=== PATIENT | female | born 1965 | race Caucasian/White ===

== ENCOUNTER 2019-03-02 10:02 | Day surgery (SDC) | payer OTHER, SELFPAY ==
--- NOTE | 2019-02-24 12:02 | HP.PCM_ITS ---
History and Physical Date of Admission: 03/02/19 Lisa Stinson Physician [employer] H&P Signed Encounter Date: 02/24/2019 Expand All Collapse All Hide copied text Hover for details Astrid Thomas is a 53 year old female who presents for AUB, endometrial polyps. Pt is scheduled for Hysteroscopy, D&C, Polypectomy and Mirena insertion on 03/02/19 at [facility]. Pt reports no bleeding at current time. Pt denies CP, SOB, dizzness. ? PAST?MEDICAL?HISTORY PAST MEDICAL HISTORY Diagnosis Date ? Anemia ? ? Anxiety ? ? Depression 04/13/2017 ? IRINEO (generalized anxiety disorder) 04/13/2017 ? Gall stone 06/05/2016 ? History of Graves' disease 03/30/2017 ? Irregular menses 04/13/2017 ? Migraines ? ? Mixed hyperlipidemia 04/13/2017 ? Ocular migraine 04/13/2017 ? Panic disorder 04/13/2017 ? Perimenopause 04/13/2017 ? Postablative hypothyroidism 04/13/2017 ? Psoriasis ? ? of ear ? Psychophysiological insomnia 04/13/2017 ? Vitamin D deficiency 04/13/2017 ? PAST?SURGICAL?HISTORY PAST SURGICAL HISTORY Procedure Laterality Date ? CHG DELIVERY ? 1990 ? CHOLECYSTECTOMY ? 06/09/2016 ? ? COLONOSCOPY ? 01/18/2017 ? repeat in 10 yrs ? ERCP ? 2017 ? under [facility] ? FAMILY?HISTORY FAMILY HISTORY Problem Relation Age of Onset ? Cancer Mother ? ? uterine ? Psychiatry Mother ? ? anxiety ? Cancer Father ? ? neuroendocrine ? Hypertension Father ? ? Thyroid Sister ? ? Diabetes Paternal Uncle ? ? Coronary Artery Disease Paternal Uncle ? ? SOCIAL?HISTORY Social History ? Tobacco Use ? Smoking status: Never Smoker ? Smokeless tobacco: Never Used Substance Use Topics ? Alcohol use: No ? Drug use: No ? CURRENT?MEDICATIONS ? Current Outpatient Medications: Cholecalciferol, Vitamin D3, 2,000 unit cap Take 2 capsules by mouth once daily. clotrimazole-betamethasone (LOTRISONE) cream Apply 1 application to affected area twice daily. iron polysaccharide complex (POLY-IRON) 150 mg iron capsule Take 1 capsule by mouth twice daily. levothyroxine (LEVOXYL) 88 mcg tablet Take 1 tablet by mouth once daily. Take on empty stomach. For Thyroid cloNIDine HCl (CATAPRES) 0.1 mg tablet Take 1 tablet by mouth twice daily. lisinopril (ZESTRIL, PRINIVIL) 5 mg tablet Take 1 tablet by mouth once daily. COMPOUNDED PRESCRIPTION Treadmill for home use to help with weight loss COMPOUNDED PRESCRIPTION BP cuff and machine. Dx of HTN sertraline (ZOLOFT) 50 mg tablet ? fluocinolone (SYNALAR) 0.01 % external solution Apply to affected area twice daily. ? No current facility-administered medications for this visit. Allergies As of Date: 02/24/2019 (No Known Allergies) Fully Assessed 02/24/2019 ? ? REVIEW OF SYSTEMS Abdomen: no pain Bladder: no dysuria.. Expanded ROS: GENERAL: Negative for fever Allergies and current medication updated:Yes ? EXAM: BP 130/82 Ht 5' 3 (1.60m) Wt 153 lb (69.4kg) BMI 27.11 kg/(m^2). ? GENERAL: pleasant, female in no apparent distress HEENT: Normocephalic, atraumatic, mucus membranes moist and no lesions NECK: full range of motion DERMATOLOGY: Normal, without lesions, non-icteric and non-hirsute CARDIAC: regular rate and rhythm CHEST: Clear to auscultation Normal inspiratory effort NEURO: alert and oriented x3,exam grossly non-focal EXTREMITIES: normal ? ASSESSMENT AND PLAN: Encounter Diagnosis ? ? ICD-10-CM ? 1. Abnormal uterine bleeding (AUB) N93.9 ? 2. Endometrial polyp N84.0 ? ? 3. Pt has been counseled on risks/benefits and alternatives of surgery including but not limited to anesthesia, bleeding, infection, perforation of uterus with subsequent injury to pelvic structures including bowel, bladder, and vessels. Pt wishes to proceed with surgery at this time. 4. Consent signed. ? ? Lisa Sanders MD
--- NOTE | 2019-03-02 | EMB_PTH ---
PATIENT: SULEMAN SIERRA LOC: [facility] U#:[id number] AGE/SX: 53/F ROOM: RE03/02/[address]: Dr. Lisa Sanders, MDDOB: 1965 BED: DIS: 03/02/2019 SPEC #: [id number] RECD: 03/02/19 13:16 STATUS: ADALID KIARRA #: [id number] BESSIE: 03/02/19 00:[address]: Lisa Sanders DEPT: SURGICAL PATHOLOGY RECD BY: Stanley Bedoya ENTERED: 03/02/19 13:16 SP TYPE: ENDOM BX/C KELLIEHR DR: Dr. Vaughn Connell MD Tissues: Endometrium, NOS Procedures: Surgery Specimen Level IV HEADER OPERATION: Hysteroscopy, D & C, polypectomy PRE-OP DIAGNOSIS: Abnormal uterine bleeding, endometrial polyp TISSUE SUBMITTED: Endometrial curettings and polyp MICROSCOPIC DIAGNOSIS Endometrium and polyp, excision: Polypoid fragments of proliferative endometrium. Rare strips of benign superficial endocervix. AM:shanti 03/03/19 COMMENT Case has been reviewed in consultation with Dr. Pedroza who concurs with the above diagnosis. IDC:STEFANO MICROSCOPIC DESCRIPTION Slides are reviewed. GROSS DESCRIPTION Received in fixative is one container labeled with the patient's name and designated endometrial curettings and polyp. The specimen consists of multiple irregular fragments of gilman-pink to hemorrhagic soft tissue that in aggregate measure 3 x 2.5 x 0.3 cm. The entire specimen is submitted in one cassette. / SJ:shanti 03/02/19 TC:5 CPT: 06141
--- NOTE | 2019-03-02 | EMB_PTH ---
PATIENT: SULEMAN SIERRA LOC: [facility] U#:[id number] AGE/SX: 53/F ROOM: RE03/02/[address]: Dr. Lisa Sanders, MDDOB: 1965 BED: DIS: 03/02/2019 SPEC #: [id number] RECD: 03/02/19 13:16 STATUS: ADALID KIARRA #: [id number] BESSIE: 03/02/19 00:[address]: Lisa Sanders DEPT: SURGICAL PATHOLOGY RECD BY: Stanley Bedoya ENTERED: 03/02/19 13:16 SP TYPE: ENDOM BX/C KELLIEHR DR: Dr. Vaughn Connell MD Tissues: Endometrium, NOS Procedures: Surgery Specimen Level IV HEADER OPERATION: Hysteroscopy, D & C, polypectomy PRE-OP DIAGNOSIS: Abnormal uterine bleeding, endometrial polyp TISSUE SUBMITTED: Endometrial curettings and polyp MICROSCOPIC DIAGNOSIS Endometrium and polyp, excision: Polypoid fragments of mildly disordered proliferative endometrium. Rare strips of benign superficial endocervix. AM:shanti 03/03/19 COMMENT Case has been reviewed in consultation with Dr. Pedroza who concurs with the above diagnosis. IDC:STEFANO MICROSCOPIC DESCRIPTION Slides are reviewed. GROSS DESCRIPTION Received in fixative is one container labeled with the patient's name and designated endometrial curettings and polyp. The specimen consists of multiple irregular fragments of gilman-pink to hemorrhagic soft tissue that in aggregate measure 3 x 2.5 x 0.3 cm. The entire specimen is submitted in one cassette. / STEFANO:shanti 03/02/19 TC:5 CPT: [id number]
[2019-03-02 10:32] LABS: Internal QC Validated? YES +Cl - CLEAR BKGD; Pregnancy, Urine Negative Negative
[2019-03-02 10:39] LABS: Hematocrit 44.5 % (37-47); Hemoglobin 14.3 g/dL (12.0-15.0); Mean Corp Hgb Conc 32.1 g/dL (32-36); Mean Corpuscular Hgb 28.1 pg (27.0-32.0); Mean Corpuscular Volume 87.4 fL (81-99); Mean Platelet Vol. 9.4 fl (6.2-12.0); Platelet Count 259 K/mm3 (150-450); RBC Distribution Width CV 13.9 % (11.6-14.6); Red Blood Count 5.09 M/mm3 (4.2-5.4); White Blood Count 6.2 K/mm3 (4.4-11.0)
[2019-03-02 10:43] VITALS: BP 144/89; PULSE 67; RESP 14; TEMP 37; O2SAT 100; BMI 27.6
[2019-03-02] MEDS: Lactated Ringers 1,000 ML 100 ML IV (11:01)
--- NOTE | 2019-03-02 11:38 | OP.PCM_ITS ---
Report of Operation Date of Procedure: 03/02/19 Pre-Operative Diagnosis: endometrial polyps, AUB Post-Operative Diagnosis: same Surgery/Procedure Performed:: Hysteroscopy, D&C, Polypectomy with Symphion, Insertion of Mirena IUD Description of Surgical Findings:: Multiple small Polyps noted. Both tubal ostia visualized. LOT #[id number] diagnostics tech: PRAKASH Pope Type of Anesthesia:: MAC Special Medications: none Specimen's removed: Endometrial Curettings Drains: none Estimated Blood Loss (mL): 5 Fluids Replaced: 800 Description of Procedure: Informed consent was obtained the patient was taken the operating room she was placed in supine position. She was given anesthesia. She was then placed in the [facility] where she was prepped and draped in the normal sterile fashion. Bladder drained with straight cathter. At this time the weighted speculum was placed in the posterior fornix of vagina. Single-tooth tenaculum was used to gently grasp the anterior lip the cervix. At this time the uterine cavity was sounded to approximately9 cm. Gentle dilatation was performed once adequate dilatation of the cervix was achieved the hysteroscope using normal saline as a distention medium was placed. abundant Endometrial tissue and multiple small polyps. Otherwise no gross abnormalities. Tubal ostia visualized. symphion resector used to removed polyps as well as perform endometrial curettage- moderate amount of tissue removed This will be sent to pathology for evaluation. hysteroscopy complete. Mirena IUD was then opened. And it was placed without difficulty. Procedure was deemed complete successful there are no complications. Anticipated normal postoperative course. Instrument lap count correct ?2. Vaginal Sweep was negative. Grafts/Implants Used: MIRENA IUD - Complications none - Admit VTE Documentation VTE Present on Admission: Yes VTE Mechan Device Prophylaxis: SCD's VTE Pharm Prophylaxis ordered?: Yes
--- NOTE | 2019-03-02 11:45 | DCINST_ITS ---
Discharge Diet: No Restrictions Discharge Activity: Return to Normal Activity, May Shower, May Take a Tub Bath - in 2 weeks. May resume sexual activity in: 2 weeks Call your doctor if you observe: Fever of 101 or Higher, Using more than one pad per hour Allergies/Adverse Reactions: Allergies No Known Allergies Allergy (Verified 02/28/19 14:43) Medications to take at Discharge Cholecalciferol (Vitamin D3) [Vitamin D3] 4,000 unit PO DAILY 02/28/19 Clonidine HCl [Catapres] 0.1 mg PO BID 02/28/19 Iron Polysaccharide Complex [Ferrex 150] 150 mg PO BID 02/28/19 Levothyroxine [Synthroid] 88 mcg PO DAILY 02/28/19 Lisinopril 5 mg PO DAILY 02/28/19 Sertraline HCl [Zoloft] 50 mg PO DAILY 02/28/19 Tretinoin/Emollient Base [Tretinoin 0.05% Emollient Crm] 40 gm TP PRN PRN 02/28/19 Primary Care Physician: Vaughn Connell MD [Primary Care Provider] - Test Results: Test results from this visit will be discussed in further detail at your follow- up appointment, if applicable. Please Follow Up With: Lisa Sanders MD When: 2 weeks
[2019-03-02 11:46] VITALS: BP 102/70; BP 144/89; PULSE 66; RESP 16; TEMP 36.3; O2SAT 95
[2019-03-02 11:50] VITALS: BP 104/81; BP 144/89; PULSE 68; RESP 16; O2SAT 97
[2019-03-02 11:54] VITALS: BP 144/89; BP 96/73; PULSE 64; RESP 16; O2SAT 95
[2019-03-02 12:00] VITALS: BP 103/80; BP 105/75; BP 144/89; PULSE 59; PULSE 62; RESP 16; TEMP 36.1; O2SAT 98; O2SAT 99
[2019-03-02 12:34] VITALS: BP 144/89
--- NOTE | 2019-03-16 09:57 | PCM.HP.BLA ---
History and Physical Date of Admission: 03/02/19 Lisa Stinson Physician [employer] TECH[employer]ICIAN APPRENTICE H&P Signed Encounter Date: 02/24/2019 Expand All Collapse All Hide copied text Hover for details Astrid Thomas is a 53 year old female who presents for AUB, endometrial polyps. Pt is scheduled for Hysteroscopy, D&C, Polypectomy and Mirena insertion on 03/02/[address] [facility]. Pt reports no bleeding at current time. Pt denies CP, SOB, dizzness. ? PAST MEDICAL HISTORY PAST MEDICAL HISTORY Diagnosis Date ? Anemia ? ? Anxiety ? ? Depression 04/13/2017 ? IRINEO (generalized anxiety disorder) 04/13/2017 ? Gall stone 06/05/2016 ? History of Graves' disease 03/30/2017 ? Irregular menses 04/13/2017 ? Migraines ? ? Mixed hyperlipidemia 04/13/2017 ? Ocular migraine 04/13/2017 ? Panic disorder 04/13/2017 ? Perimenopause 04/13/2017 ? Postablative hypothyroidism 04/13/2017 ? Psoriasis ? ? of ear ? Psychophysiological insomnia 04/13/2017 ? Vitamin D deficiency 04/13/2017 ? PAST SURGICAL HISTORY PAST SURGICAL HISTORY Procedure Laterality Date ? CHG DELIVERY ? 1990 ? CHOLECYSTECTOMY ? 06/09/2016 ? ? COLONOSCOPY ? 01/18/2017 ? repeat in 10 yrs ? ERCP ? 2016 ? under [facility] ? FAMILY HISTORY FAMILY HISTORY Problem Relation Age of Onset ? Cancer Mother ? ? uterine ? Psychiatry Mother ? ? anxiety ? Cancer Father ? ? neuroendocrine ? Hypertension Father ? ? Thyroid Sister ? ? Diabetes Paternal Uncle ? ? Coronary Artery Disease Paternal Uncle ? ? SOCIAL HISTORY Social History ? Tobacco Use ? Smoking status: Never Smoker ? Smokeless tobacco: Never Used Substance Use Topics ? Alcohol use: No ? Drug use: No ? ? Current Outpatient Medications: Cholecalciferol, Vitamin D3, 2,000 unit cap Take 2 capsules by mouth once daily. clotrimazole-betamethasone (LOTRISONE) cream Apply 1 application to affected area twice daily. iron polysaccharide complex (POLY-IRON) 150 mg iron capsule Take 1 capsule by mouth twice daily. levothyroxine (LEVOXYL) 88 mcg tablet Take 1 tablet by mouth once daily. Take on empty stomach. For Thyroid cloNIDine HCl (CATAPRES) 0.1 mg tablet Take 1 tablet by mouth twice daily. lisinopril (ZESTRIL, PRINIVIL) 5 mg tablet Take 1 tablet by mouth once daily. COMPOUNDED PRESCRIPTION Treadmill for home use to help with weight loss COMPOUNDED PRESCRIPTION BP cuff and machine. Dx of HTN sertraline (ZOLOFT) 50 mg tablet ? fluocinolone (SYNALAR) 0.01 % external solution Apply to affected area twice daily. ? No current facility-administered medications for this visit. Allergies As of Date: 02/24/2019 (No Known Allergies) Fully Assessed 02/24/2019 ? ? REVIEW OF SYSTEMS Abdomen: no pain Bladder: no dysuria.. Expanded ROS: GENERAL: Negative for fever Allergies and current medication updated:Yes ? EXAM: BP 130/82 Ht 5' 3 (1.60m) Wt 153 lb (69.4kg) BMI 27.11 kg/(m^2). ? GENERAL: pleasant, female in no apparent distress HEENT: Normocephalic, atraumatic, mucus membranes moist and no lesions NECK: full range of motion DERMATOLOGY: Normal, without lesions, non-icteric and non-hirsute CARDIAC: regular rate and rhythm CHEST: Clear to auscultation Normal inspiratory effort NEURO: alert and oriented x3,exam grossly non-focal EXTREMITIES: normal ? ASSESSMENT AND PLAN: Encounter Diagnosis ? ? ICD-10-CM ? 1. Abnormal uterine bleeding (AUB) N93.9 ? 2. Endometrial polyp N84.0 ? ? 3. Pt has been counseled on risks/benefits and alternatives of surgery including but not limited to anesthesia, bleeding, infection, perforation of uterus with subsequent injury to pelvic structures including bowel, bladder, and vessels. Pt wishes to proceed with surgery at this time. 4. Consent signed. ? ? Lisa Sanders MD ? Office Visit on 02/24/2019
== END 2019-03-02 12:49 | disposition home or self-care (01) ==
LOC: SDC 10:05 → AC 10:07
PROVIDERS: Family Provider Family Medicine; PCP Family Medicine; Referring Provider Obstetrics & Gynecology; Visit Provider Obstetrics & Gynecology
PROC: 0UB98ZZ Excision of Uterus, Via Natural or Artificial Opening Endoscopic (ICD-10-PCS; CPT 58558; principal; 2019-03-02 11:25)
DX: N84.0 Polyp of corpus uteri (principal); D64.9 Anemia, unspecified; F41.9 Anxiety disorder, unspecified; F32.9 Major depressive disorder, single episode, unspecified; I10 Essential (primary) hypertension; E06.9 Thyroiditis, unspecified; Z87.19 Personal history of other diseases of the digestive system; Z79.899 Other long term (current) drug therapy
CPT/HCPCS: 00940; 58300; 58558; 36415; 81025; 85027; 88305; J7120; J2405